=== PATIENT | female | born 1965 | race Caucasian/White ===

== ENCOUNTER → 2017-08-21 10:01 | Outpatient (CLI) | payer OTHER, SELFPAY ==
[2017-08-21 12:37] LABS: T4 Free Direct 1.05 ng/dL (0.76-1.46); Thyroid Stim Hormone (TSH) 0.81 uIU/mL (0.358-3.74)
== END ==
PROVIDERS: Family Provider Family Medicine; PCP Family Medicine; Visit Provider Family Medicine
DX: E03.9 Hypothyroidism, unspecified (principal)
CPT/HCPCS: 36415; 84439; 84443

== ENCOUNTER 2017-12-23 09:02 | Day surgery (SDC) | payer OTHER, SELFPAY ==
[2017-12-23 09:20] VITALS: BP 90/64; PULSE 66; RESP 12; TEMP 36.7; O2SAT 99; BMI 25.3
[2017-12-23 10:25] VITALS: BP 104/63; BP 90/64; PULSE 77; RESP 16; TEMP 36.8; O2SAT 98
[2017-12-23 10:30] VITALS: BP 100/64; BP 90/64; PULSE 74; RESP 16; O2SAT 100
[2017-12-23 10:35] VITALS: BP 105/64; BP 90/64; PULSE 63; RESP 18; O2SAT 100
[2017-12-23 10:40] VITALS: BP 111/66; BP 90/64; PULSE 67; RESP 18; TEMP 36.6; O2SAT 100
[2017-12-23 10:53] VITALS: BP 90/64
--- NOTE | 2017-12-23 13:00 | PCM.OPRPT ---
Report of Operation Date of Procedure: 12/23/17 Pre-Operative Diagnosis: Screening for colon cancer Post-Operative Diagnosis: Internal and external hemorrhoids Surgery/Procedure Performed:: Colonoscopy Type of Anesthesia:: MAC Anesthesiologist: Elías Gaviria Specimen's removed: None Estimated Blood Loss (mL): None Description of Procedure: Procedure: Colonoscopy After reviewing the risks benefits, the patient was deemed in satisfactory condition to undergo procedure. After obtaining informed consent, the scope was passed under direct visualization. Throughout the procedure, the patient's blood pressure pulse and position saturations were monitored continuously anesthesia. The colonoscope was introduced through the anus and advanced to the cecum, identified by the appendiceal orifice, IC valve and transillumination. The colonoscopy was performed without difficulty. The patient tolerated procedure well. Quality of bowel prep was good. Findings: The perianal and digital rectal exam failed external and grade 1 internal hemorrhoids. The colon (entire examined portion) appeared normal. Retroflexed view of the distal rectum and anal verge was showed grade 1 internal hemorrhoids Impression: 1. The entire colon is normal. 2. External and internal grade 1 hemorrhoids. Recommendations: Repeat colonoscopy in 10 years for screening purposes - Complications None
== END 2017-12-23 11:01 | disposition home or self-care (01) ==
LOC: EN 09:03 → AC 09:04
PROVIDERS: Family Provider Family Medicine; PCP Family Medicine; Visit Provider Surgery
PROC: 0DJD8ZZ Inspection of Lower Intestinal Tract, Via Natural or Artificial Opening Endoscopic (ICD-10-PCS; CPT 45378; principal; 2017-12-23 09:55)
DX: Z12.11 Encounter for screening for malignant neoplasm of colon (principal); K64.0 First degree hemorrhoids; K64.4 Residual hemorrhoidal skin tags; E03.9 Hypothyroidism, unspecified
CPT/HCPCS: 45378; J7120

== ENCOUNTER → 2018-07-08 14:45 | Outpatient (CLI) | payer OTHER, SELFPAY ==
[2018-07-08 15:52] LABS: Cholesterol 176 mg/dL (200); High Density Lipoprotein 58 mg/dL
== END ==
PROVIDERS: Family Provider Family Medicine; PCP Family Medicine; Visit Provider Family Medicine
DX: Z13.220 Encounter for screening for lipoid disorders (principal); E03.9 Hypothyroidism, unspecified
CPT/HCPCS: 36415; 82465; 83718; 84439; 84443

== ENCOUNTER 2018-12-17 17:15 | Emergency (ER) | payer OTHER, SELFPAY ==
[2018-12-17 17:16] VITALS: BP 132/68; PULSE 71; RESP 16; TEMP 36.7; O2SAT 98; BMI 24.0
--- NOTE | 2018-12-17 17:50 | ED.VISSUMM ---
- ER Visit Summary Date of Service: 12/17/18 Chief Complaint: Right small finger bruise without any obvious known trauma or injury. History of Present Illness: The patient is a 53 F as male history of hypothyroidism. Patient is right-hand dominant. Today she was on minor gardening. Since she developed a small bruise on her right small finger on the proximal phalanx on the palmar side. She has had these develop before on her right long finger. But denies any bruising in other areas. She denies any bloody noses or blood in her urine or stool. She has no bleeding disorder. She denies any significant pain. She has normal range of motion her right hand. She is on no blood thinners. Physical Examination: Well-appearing middle-aged female. Vital signs are stable afebrile. No acute distress. HEENT exam normal. Neck nontender no lymphadenopathy. Lungs clear to auscultation bilaterally. Heart regular rhythm no murmur. Abdomen soft nontender normal bowel sounds no peritoneal signs. Extremities moves all 4. Neurovascular intact. Palm of her right hand in the proximal phalanx there is a small bruise. Otherwise the other fingers are normal. She has full flexion-extension all digits. There is no bony deformity or tenderness. Distally all fingers have normal cap refill touch sensation. Test Results: None Emergency Department Course and Treatment: Patient most likely has a small hematoma from minor trauma that she did not even realize. There is no need for any x-rays or blood work at this time. Treatment Plan: Ice to the area. Motrin for pain. Follow-up with her doctor if she gets multiple areas of bruising. Disposition: Discharge Impression: Right small finger hematoma This note was generated with Editlite dictation software. It may contain incorrect words, spelling, and punctuation that were not noted in review of the chart prior to signing ED Disposition - Plan for ED Patient: Referrals: David Parker MD [Primary Care Provider] -
--- NOTE | 2018-12-17 17:52 | ED.DEP ---
ED Disposition - Plan for ED Patient: Disposition: Home or Assisted Living Instructions: Hematoma Referrals: David Parker MD [Primary Care Provider] - As Needed Additional Instructions: Follow-up with your doctor if you develop bruising in multiple areas. Most likely this came from minor trauma to a small blood vessel on your right small finger. Ice and elevate. Motrin for pain and swelling.
== END 2018-12-17 18:12 | disposition home or self-care (01) ==
LOC: ED 17:58
PROVIDERS: Emergency Provider Emergency Medicine; Family Provider Family Medicine; PCP Family Medicine
DX: S60.051A Contusion of right little finger without damage to nail, initial encounter (principal); X58.XXXA Exposure to other specified factors, initial encounter; Y93.H2 Activity, gardening and landscaping; Y92.9 Unspecified place or not applicable; E03.9 Hypothyroidism, unspecified; Z79.899 Other long term (current) drug therapy
CPT/HCPCS: 99282

== ENCOUNTER → 2018-12-20 | Outpatient (CLI) | payer OTHER, SELFPAY ==
[2018-12-17 17:16] VITALS: BMI 24.0
[2018-12-20 18:19] LABS: T4 Free Direct 1.33 ng/dL (0.76-1.46); Thyroid Stim Hormone (TSH) 0.04 uIU/mL (0.358-3.74)
[2018-12-21 09:36] LABS: Free T3 2.5 pg/mL (2.18-3.98)
== END | disposition home or self-care (01) ==
LOC: MTLAB 15:51
PROVIDERS: Family Provider Family Medicine; PCP Family Medicine; Referring Provider Family Medicine; Visit Provider Family Medicine
DX: E03.9 Hypothyroidism, unspecified (principal)
CPT/HCPCS: 36415; 84439; 84443; 84481

== ENCOUNTER → 2019-02-14 11:52 | Outpatient (CLI) | payer OTHER, SELFPAY ==
[2019-02-14 14:09] LABS: Free T3 2.4 pg/mL (2.18-3.98); Thyroid Stim Hormone (TSH) 0.05 uIU/mL (0.358-3.74)
== END ==
PROVIDERS: Family Provider Family Medicine; PCP Family Medicine; Referring Provider Family Medicine; Visit Provider Family Medicine
DX: E03.9 Hypothyroidism, unspecified (principal)
CPT/HCPCS: 36415; 84443; 84481

== ENCOUNTER → 2019-03-08 16:56 | Outpatient (CLI) | payer OTHER, SELFPAY ==
[2019-03-08 18:33] LABS: Ferritin 24 ng/mL (8-252)
[2019-03-10 12:23] LABS: Thyroid Peroxidase AB 91 IU/mL (0-34)
== END ==
PROVIDERS: Family Provider Family Medicine; PCP Family Medicine; Referring Provider Dermatology Pediatric Dermatology; Visit Provider Dermatology Pediatric Dermatology
DX: E03.9 Hypothyroidism, unspecified (principal); L82.1 Other seborrheic keratosis; L81.4 Other melanin hyperpigmentation; D18.01 Hemangioma of skin and subcutaneous tissue; D22.5 Melanocytic nevi of trunk; L57.8 Other skin changes due to chronic exposure to nonionizing radiation; L65.0 Telogen effluvium; D23.62 Other benign neoplasm of skin of left upper limb, including shoulder; Z71.89 Other specified counseling
CPT/HCPCS: 36415; 82728; 86376

== ENCOUNTER → 2019-04-05 16:34 | Outpatient (CLI) | payer OTHER, SELFPAY ==
[2019-04-05 18:26] LABS: T4 Total, Thyroxin 14.4 ug/dL (4.8-13.9); Thyroid Stim Hormone (TSH) 0.05 uIU/mL (0.358-3.74)
[2019-04-06 09:05] LABS: T4 Free Direct 1.53 ng/dL (0.76-1.46)
== END ==
PROVIDERS: Family Provider Family Medicine; PCP Family Medicine; Referring Provider Family Medicine; Visit Provider Family Medicine
DX: E03.9 Hypothyroidism, unspecified (principal)
CPT/HCPCS: 36415; 84436; 84439; 84443; 84480

== ENCOUNTER → 2019-06-28 16:33 | Outpatient (CLI) | payer OTHER, SELFPAY ==
[2019-06-28 18:18] LABS: T4 Free Direct 1.25 ng/dL (0.76-1.46); Thyroid Stim Hormone (TSH) 0.09 uIU/mL (0.358-3.74)
== END ==
PROVIDERS: PCP Family Medicine; Referring Provider Family Medicine; Visit Provider Family Medicine
DX: E03.9 Hypothyroidism, unspecified (principal)
CPT/HCPCS: 36415; 84439; 84443

== ENCOUNTER → 2019-08-06 08:48 | Outpatient (CLI) | payer OTHER, SELFPAY ==
[2019-08-06 10:02] LABS: ALB/GLOB Ratio 1.2 RATIO (0.9-2.4); AST(SGOT) 27 U/L (15-37); Alanine Aminotransfer ALT/SGPT 30 U/L (13-56); Alkaline Phosphatase 132 U/L (45-117); Anion Gap 4 (5-15); BUN 22 mg/dL (7-18); BUN/Creat Ratio 25.2 RATIO (10-20); Chloride 105 mmol/L (98-107); Cholesterol 181 mg/dL (200); Creatinine, Serum 0.87 mg/dL (0.55-1.02); EST Glomerular Filtration Rate 72 mL/min (>60); Est Glom Filt Rate - Afr Amer 87 mL/min (>60); Globulin 3.3 g/dL (2.2-4.2); Glucose 91 mg/dL (74-106); High Density Lipoprotein 79 mg/dL; Potassium 4.2 mmol/L (3.5-5.1); Protein, Total 7.3 g/dL (6.4-8.2); Sodium Level 140 mmol/L (136-145); Triglycerides 67 mg/dL; Very Low Density Lipoprotein 13 mg/dL (5-40)
[2019-08-06 10:12] LABS: Free T3 2.4 pg/mL (2.18-3.98); T4 Free Direct 1.29 ng/dL (0.76-1.46); Thyroid Stim Hormone (TSH) 0.68 uIU/mL (0.358-3.74)
== END ==
PROVIDERS: PCP Family Medicine
DX: Z13.220 Encounter for screening for lipoid disorders (principal); E78.01 Familial hypercholesterolemia; E03.9 Hypothyroidism, unspecified
CPT/HCPCS: 80053; 80061; 84439; 84443; 84481

== ENCOUNTER → 2020-02-29 16:02 | Outpatient (CLI) | payer OTHER, SELFPAY ==
[2020-02-29 18:38] LABS: ALB/GLOB Ratio 1.2 RATIO (0.9-2.4); AST(SGOT) 24 U/L (15-37); Alanine Aminotransfer ALT/SGPT 29 U/L (13-56); Albumin, Serum 3.8 g/dL (3.2-5.0); Alkaline Phosphatase 126 U/L (45-117); Anion Gap 2 (5-15); BUN 20 mg/dL (7-18); BUN/Creat Ratio 23.9 RATIO (10-20); Calcium,Total 9.1 mg/dL (8.5-10.1); Chloride 106 mmol/L (98-107); Creatinine, Serum 0.84 mg/dL (0.55-1.02); EST Glomerular Filtration Rate 75 mL/min (>60); Est Glom Filt Rate - Afr Amer 91 mL/min (>60); Free T3 2.4 pg/mL (2.18-3.98); Globulin 3.3 g/dL (2.2-4.2); Glucose 91 mg/dL (74-106); Magnesium 2.2 mg/dL (1.6-2.6); Protein, Total 7.1 g/dL (6.4-8.2); Sodium Level 141 mmol/L (136-145); T4 Free Direct 1.31 ng/dL (0.76-1.46); Thyroid Stim Hormone (TSH) 1.02 uIU/mL (0.358-3.74)
[2020-03-03 14:29] LABS: Zinc, Plasma or Serum 97 ug/dL (56-134)
== END ==
PROVIDERS: PCP Family Medicine; Referring Provider Family Medicine; Visit Provider Family Medicine
DX: E03.9 Hypothyroidism, unspecified (principal); R74.8 Abnormal levels of other serum enzymes
CPT/HCPCS: 36415; 80053; 83735; 84439; 84443; 84481; 84630

== ENCOUNTER → 2020-06-18 | Outpatient (CLI) | payer OTHER, SELFPAY ==
[2020-06-18 14:47] VITALS: BMI 24.9
[2020-06-22 12:30] LABS: HPV APTIMA, High Risk Negative (Negative)
== END | disposition home or self-care (01) ==
LOC: LABSPEC 17:12
PROVIDERS: PCP Family Medicine; Referring Provider Nurse Practitioner Women's Health; Visit Provider Nurse Practitioner Women's Health
DX: Z12.4 Encounter for screening for malignant neoplasm of cervix (principal)
CPT/HCPCS: 87624; 88175; G0145

== ENCOUNTER → 2020-11-06 08:49 | Outpatient (CLI) | payer OTHER, SELFPAY ==
[2020-06-18 14:47] VITALS: BMI 24.9
[2020-11-06 09:47] LABS: Absolute Lymphocyte Count 2.06 X10^3/uL (0.83-4.51); Absolute Neutrophil Count 2.8 X10^3/uL (2.0-7.7); Basophil# 0.02 X10^3/uL; Basophil% 0.4 % (0-1); Eosinophil# 0.13 X10^3/uL; Eosinophils% 2.4 % (0-5); Hematocrit 40.8 % (37-47); Hemoglobin 13.2 g/dL (12.0-15.0); Lymphocyte # 2.06 X10^3/ul (0.83-4.51); Lymphocyte % 37.8 % (19-41); Mean Corp Hgb Conc 32.4 g/dL (32-36); Mean Corpuscular Volume 95.8 fL (81-99); Mean Platelet Vol. 10.1 fl (6.2-12.0); Monocyte# 0.42 X10^3/uL; Monocyte% 7.7 % (0-10); NRBC Flagged by Analyzer 0 % (0-5); Neutrophil # 2.81 X10^3/uL (2.7-7.7); Neutrophil % 51.5 % (47-70); Platelet Count 301 K/mm3 (150-450); RBC Distribution Width CV 12.5 % (11.6-14.6); RBC Distribution Width SD 44.2 fl (35.1-43.9); Red Blood Count 4.26 M/mm3 (4.2-5.4); White Blood Count 5.5 K/mm3 (4.4-11.0)
[2020-11-06 10:09] LABS: PTHIN 35.6 pg/mL (18.4-80.1)
[2020-11-06 10:13] LABS: ALB/GLOB Ratio 1.2 RATIO (0.9-2.4); AST(SGOT) 31 U/L (15-37); Alanine Aminotransfer ALT/SGPT 32 U/L (13-56); Alkaline Phosphatase 129 U/L (45-117); Anion Gap 5 (5-15); BUN 24 mg/dL (7-18); BUN/Creat Ratio 28.1 RATIO (10-20); Calcium,Total 9.6 mg/dL (8.5-10.1); Chloride 103 mmol/L (98-107); Creatinine, Serum 0.86 mg/dL (0.55-1.02); EST Glomerular Filtration Rate 73 mL/min (>60); Est Glom Filt Rate - Afr Amer 89 mL/min (>60); Free T3 1.8 pg/mL (2.18-3.98); Globulin 3.4 g/dL (2.2-4.2); Glucose 84 mg/dL (74-106); Potassium 4.2 mmol/L (3.5-5.1); Protein, Total 7.4 g/dL (6.4-8.2); Sodium Level 140 mmol/L (136-145); T4 Free Direct 1.13 ng/dL (0.76-1.46); Thyroid Stim Hormone (TSH) 5.37 uIU/mL (0.358-3.74); Vitamin D,25 Hydroxy 78.8 ng/mL
== END ==
PROVIDERS: PCP Family Medicine; Referring Provider Family Medicine; Visit Provider Family Medicine
DX: E03.9 Hypothyroidism, unspecified (principal); R74.8 Abnormal levels of other serum enzymes
CPT/HCPCS: 36415; 80053; 82306; 83970; 84439; 84443; 84481; 85025

== ENCOUNTER → 2021-11-07 | Outpatient (CLI) | payer OTHER, SELFPAY ==
[2021-11-07 16:06] LABS: ALB/GLOB Ratio 1.2 RATIO (0.9-2.4); AST(SGOT) 32 U/L (15-37); Alanine Aminotransfer ALT/SGPT 33 U/L (13-56); Albumin, Serum 3.8 g/dL (3.2-5.0); Alkaline Phosphatase 111 U/L (45-117); Anion Gap 5 (5-15); BUN 19 mg/dL (7-18); BUN/Creat Ratio 21.5 RATIO (10-20); Calcium,Total 9.2 mg/dL (8.5-10.1); Chloride 102 mmol/L (98-107); Creatinine, Serum 0.88 mg/dL (0.55-1.02); EST Glomerular Filtration Rate 70 mL/min (>60); Est Glom Filt Rate - Afr Amer 85 mL/min (>60); Globulin 3.1 g/dL (2.2-4.2); Glucose 100 mg/dL (74-106); Potassium 4.2 mmol/L (3.5-5.1); Protein, Total 6.9 g/dL (6.4-8.2); Sodium Level 137 mmol/L (136-145); Thyroid Stim Hormone (TSH) 0.72 uIU/mL (0.358-3.74)
== END | disposition home or self-care (01) ==
LOC: MTLAB 11:10
PROVIDERS: PCP Family Medicine; Referring Provider Family Medicine; Visit Provider Family Medicine
DX: R74.8 Abnormal levels of other serum enzymes (principal)
CPT/HCPCS: 36415; 80053; 84439; 84443

== ENCOUNTER 2022-07-17 19:37 | Emergency (ER) | payer OTHER, SELFPAY ==
[2022-07-17 19:40] VITALS: BP 122/90; PULSE 100; RESP 18; TEMP 36; O2SAT 100; BMI 24.7
--- NOTE | 2022-07-17 20:49 | EKG12_ITS ---
Test Reason : DYSRHYTHMIA Blood Pressure : / mmHG Vent. Rate : 092 BPM Atrial Rate : 092 BPM P-R Int : 134 ms QRS Dur : 076 ms QT Int : 364 ms P-R-T Axes : 079 080 033 degrees QTc Int : 450 ms Normal sinus rhythm Normal ECG Confirmed by TONYA GARY, ANA ([id number]), business editor VIV RODRIGUEZ ([id number]) on 07/18/2022 10:00:25 AM Referred By: BB Confirmed By:ANA CASTANEDA MD
--- NOTE | 2022-07-17 20:51 | EDS_ITS ---
HPI HPI - GI History of Present Illness Chief Complaint: Nausea/Vomiting Informant: patient Narrative Narrative: Patient felt nauseated and had a mild bellyache this morning, she ate lunch and did okay. She had no fevers or diarrhea, she had a normal bowel movement today without blood or melena. Around 3 hours ago, she had developed intense pain in her left upper quadrant followed by retching vomiting stomach contents without blood or coffee grounds. She states the pain was extreme and did not radiate. She said it came in waves and she vomited maybe 6 times. She had a prior cholecystectomy and states that this seemed similar to that discomfort but it was in the left upper quadrant only. Now she feels better, and has a mild diffuse achy discomfort in her abdomen and her nausea is not as bad. She has never had this happen before. She denies any discomfort going up into her chest, into her back, any pleuritic nature, or any dyspnea. She states a couple times when she was retching very hard, she was near syncopal, but in between vomiting, her lightheadedness would resolve. She did not lose consciousness. [facility] Medical History Family history of breast cancer Hypothyroidism Home Medications diphenhydramine HCl 25 mg tablet 25 mg PO DAILY 11/17/17 [History Last Taken Unknown] multivitamin 1 tab PO DAILY 11/17/17 [History Last Taken Unknown] cholecalciferol (vitamin D3) 50 mcg (2,000 unit) capsule 2,000 unit PO DAILY 12/22/17 [History Last Taken Unknown] ascorbate calcium (vitamin C) 500 mg tablet 500 mg PO DAILY 06/18/20 [History Last Taken Unknown] aspirin 81 mg tablet,delayed release 81 mg PO BID 06/18/20 [History Last Taken Unknown] biotin 1 mg capsule 1 mg PO DAILY 06/18/20 [History Last Taken Unknown] estradiol 0.01% (0.1 mg/gram) vaginal cream See Rx Instructions vaginal .COMPLEX #42.5 grams 06/18/20 [Rx Last Taken Unknown] iron 18 mg tablet 18 mg PO DAILY 06/18/20 [History Last Taken Unknown] levothyroxine 125 mcg tablet 112 mcg PO DAILY 06/18/20 [History Last Taken Unknown] magnesium 30 mg tablet 30 mg PO DAILY 06/18/20 [History Last Taken Unknown] ondansetron 4 mg disintegrating tablet 8 mg PO Q8H PRN PRN Nausea #20 tabs 07/17/22 [Rx Last Taken Unknown] pantoprazole 40 mg tablet,delayed release 40 mg PO DAILY #7 tabs 07/17/22 [Rx Last Taken Unknown] Allergy/AdvReac Type Severity Reaction Status Date / Time Penicillins AdvReac Hives Verified 07/17/22 19:40 Family History (Updated 06/18/20 @ 14:55 by Roselyn De Jesus) Grandmother Breast cancer Rheumatoid arthritis Mother Breast cancer Father Afib Surgical History History of cholecystectomy S/P uterine ablation Social History household members: none number of children: 2 current occupational status: employed current occupation: [employer] history of recent travel: No sexually active: No Smoking Status: Never smoker alcohol intake: current alcohol intake frequency: a few times a month substance use type: does not use diet: Weight Watchers and other what type of physical activity do you participate in: aerobics and weight training seatbelt use: always do you feel safe at home: Yes additional social history: ROS ROS ED Constitutional Constitutional ED: Denies chills or fever(s) Eyes Eyes: Denies change in vision or diplopia ENT ENT ED: Denies rhinorrhea or sore throat Cardiovascular Cardiovascular: Denies chest pain or palpitations Respiratory/Chest Respiratory/Chest: Denies cough or dyspnea Gastrointestinal Gastrointestinal: Reports as per HPI, abdominal pain, nausea and vomiting; Denies diarrhea Genitourinary Genitourinary ED: Denies dysuria or hematuria Musculoskeletal Musculoskeletal: Denies back pain or neck pain Integumentary Denies abscess or rash Neurologic Neurologic: Denies headache(s), paresthesias or weakness Psychiatric Psychiatric: Denies anxiety or suicidal thoughts EXAM Physical Exam Const Vital Signs: 07/17/22 19:40 07/17/22 20:59 Temperature 96.8 F L 99 F Temperature Source Temporal Oral Pulse Rate 100 Respiratory Rate 18 Blood Pressure 122/90 H Blood Pressure Mean 100 Pulse Ox 100 Oxygen Delivery Method Room Air Positive well nourished and well developed General Appearance ED: well developed and NAD HEENT Reports moist mucous membranes normocephalic and atraumatic Eyes PERRL and EOMs intact bilaterally Neck full ROM and supple Resp normal respiratory effort and clear to auscultation bilaterally Cardio regular rate, regular rhythm and no murmurs GI non-tender and non-distended GI Narrative: Very benign abdomen even with deep palpation, unable to reproduce any pain/tenderness diffusely or anywhere. Auscultation: normoactive bowel sounds Palpation: soft Back/Spine no CVA tenderness General Back: other FROM Extremity normal to inspection General Extremety ED: Negative for edema, pulses abnormal or tenderness General Extremity: Negative for edema or pulses abnormal Neuro oriented x3, CN's II-XII intact bilaterally and no sensory deficits noted Sensorium / Orientation: awake and alert Motor Exam: strength 5/5 throughout Skin no rashes or lesions noted and no wounds MDM MDM MDM Narrative Medical decision making narrative: Patient had severe left upper quadrant pain but now has a very benign abdomen, I am not able to reproduce any of her pain. Therefore in order to evaluate for pathology such as a left lower lobe infiltrate, gastric outlet obstruction, or other obstructive-type pathology, I obtained an acute abdominal series. 4 views on my interpretation show nonspecific bowel gas pattern and a normal chest x- ray. Radiology in agreement I reviewed their interpretation. Her labs look normal except for mild prerenal azotemia and she has positive nitrite on her urinalysis with no urine symptoms. I am sending her urine for culture but I do not think that needs to be addressed right now otherwise. I also did troponin and EKG, those are normal. I suspect that her near syncopal episodes were simply vasovagal and she concurs that they occurred while she was retching and performing a Valsalva maneuver involuntarily. Here after IV fluids, Zofran, she is feeling much better and tolerating oral fluids and ambulatory throughout the ED, to and from the bathroom. I suspect this may be just gastritis, may be infectious may be mechanical/inflammatory, will place her on pantoprazole for a week and give her a prescription for Zofran to use as needed, and recommend a bland diet for the next several days until what ever this is declares itself. She is comfortable with that plan. Lab Data Attestation: I reviewed the patient's lab results. Labs: Laboratory Results - last 24 hr 07/17/22 07/17/22 07/17/22 20:00 20:00 21:25 WBC 8.9 RBC 4.16 L Hgb 12.9 Hct 39.3 MCV 94.5 MCH 31.0 MCHC 32.8 RDW Std Deviation 43.7 RDW Coeff of [place] 12.6 Plt Count 241 MPV 10.8 Immature Gran % (Auto) 0.200 Neut % (Auto) 90.9 H Lymph % (Auto) 4.5 L [place] % (Auto) 4.2 Eos % (Auto) 0.1 Baso % (Auto) 0.1 Absolute Neuts (auto) 8.1 H Absolute Lymphs (auto) 0.40 L Nucleated RBC % 0 Differential Comment SCANNED Sodium 139 Potassium 3.7 Chloride 105 Carbon Dioxide 27.0 Anion Gap 7 BUN 22 H Creatinine 0.76 Estim Creat Clear Calc 65.37 Est GFR (MDRD) Af Amer 101 Est GFR (MDRD) Non-Af 83 BUN/Creatinine Ratio 28.9 H Glucose 112 H Calcium 9.1 Troponin I High Sens 4 Urine Color Yellow Urine Clarity Clear Urine pH 8.0 Ur Specific Thor 1.010 Urine Protein Negative Urine Glucose (UA) Normal Urine Ketones 5 H Urine Occult Blood 10 H Urine Nitrite Positive H Urine Bilirubin Negative Urine Urobilinogen 1 H Ur Leukocyte Esterase 25 H Urine RBC 0 SEEN Urine WBC 0-5 SEEN Ur Squamous Epith Cells 0 SEEN Urine Bacteria 2+ Urine Mucus 0 SEEN Radiography Diagnostic Testing: Clinical Impression(s) from Imaging Studies Acute Abdomen Series 07/17/22 21:10 IMPRESSION: No acute cardiopulmonary disease. Nonspecific bowel gas pattern suggesting possible colitis/enteritis. Electronically Signed: José Manuel Monet MD at 21:39 EST , Rhythm Strip Rhythm Strip: Sinus Rhythm Rate: 90 Ectopy: None EKG Initial EKG: Attestation: I personally reviewed and interpreted this EKG as follows: Interpretation: Sinus Rhythm and No Acute Injury Pattern Comments: Normal EKG Discharge Plan Triage Chief Complaint: Nausea/Vomiting Other Complaint: Abd Pain Chest Other Dizziness Syncope ED Provider: Ramana Juárez Dx/Rx/DC Orders Clinical Impression: Acute gastritis without hemorrhage, Vasovagal near syncope Instructions: ED Diet, [place] (Adult), ED Diet Vomiting Diarrhea, ED Gastritis (Adult) Prescriptions: New ondansetron [ondansetron] 4 mg tablet,disintegrating 8 mg PO Q8H PRN PRN (Reason: Nausea) Qty: 20 0RF pantoprazole 40 mg tablet,delayed release (DR/EC) 40 mg PO DAILY Qty: 7 0RF No Action aspirin 81 mg tablet,delayed release (DR/EC) 81 mg PO BID magnesium 30 mg tablet 30 mg PO DAILY biotin 1 mg capsule 1 mg PO DAILY ascorbate calcium (vitamin C) 500 mg tablet 500 mg PO DAILY iron 18 mg tablet 18 mg tablet 18 mg PO DAILY estradiol 0.01 % (0.1 mg/gram) cream See Rx Instructions VAGINAL .COMPLEX Qty: 42.5 2RF Rx Instructions: small amount as directed vaginal twice a week; multivitamin 1 EACH tablet 1 tab PO DAILY diphenhydramine HCl 25 MG tablet 25 mg PO DAILY cholecalciferol (vitamin D3) 2,000 UNIT capsule 2,000 unit PO DAILY levothyroxine 125 mcg tablet 112 mcg PO DAILY Primary Care Provider: David Parker Referrals: David Parker MD [Primary Care Provider] - 3-5 Days if not improving Disposition Disposition: Home, Self Care
[2022-07-17] MEDS: 0.9% Normal Saline 1,000 ML 1000 ML IV (20:58)
[2022-07-17] MEDS: Ondansetron 4 MG/2 ML Vial IV (20:58)
[2022-07-17] MEDS: Dicyclomine 10 MG Capsule 20 MG PO (20:58)
[2022-07-17 20:59] VITALS: TEMP 37.2
--- NOTE | 2022-07-17 21:10 | RAD_ITS ---
INDICATION: Pain LUQ, n/v EXAMINATION/TECHNIQUE: X-RAY - XR Abdomen Series W/ Chest 1 View COMPARISON: None FINDINGS: --Chest: LINES/DEVICES: None. LUNGS: No consolidation, edema or effusion. No pneumothorax. MEDIASTINUM AND CARDIOVASCULAR STRUCTURES: Cardiac silhouette not enlarged. Central airways and mediastinal contour are unremarkable. BONES AND SOFT TISSUES: No acute findings. --Abdomen: BOWEL GAS PATTERN: Non-obstructive. Extensive colonic fecal retention with gas present in both large and small bowel, scattered colonic fluid levels. FREE AIR: None visualized. ORGANOMEGALY: Not seen. CALCIFICATIONS: No abnormal calcifications observed. BONES AND SOFT TISSUES: No acute findings. RAD/Acute Abdomen Inc Chest IMPRESSION: No acute cardiopulmonary disease. Nonspecific bowel gas pattern suggesting possible colitis/enteritis. Electronically Signed: José Manuel Monet MD at 21:39 EST ,
[2022-07-17 21:27] LABS: Absolute Neutrophil Count 8.1 X10^3/uL (2.0-7.7); Basophil# 0.01 X10^3/uL; Basophil% 0.1 % (0-1); Eosinophil# 0.01 X10^3/uL; Eosinophils% 0.1 % (0-5); Hematocrit 39.3 % (37-47); Hemoglobin 12.9 g/dL (12.0-15.0); Lymphocyte % 4.5 % (19-41); Mean Corp Hgb Conc 32.8 g/dL (32-36); Mean Corpuscular Volume 94.5 fL (81-99); Mean Platelet Vol. 10.8 fl (6.2-12.0); Monocyte# 0.37 X10^3/uL; Monocyte% 4.2 % (0-10); NRBC Flagged by Analyzer 0 % (0-5); Neutrophil # 8.05 X10^3/uL (2.7-7.7); Neutrophil % 90.9 % (47-70); POSITIVE DIFFERENTIAL YES; Platelet Count 241 K/mm3 (150-450); RBC Distribution Width CV 12.6 % (11.6-14.6); RBC Distribution Width SD 43.7 fl (35.1-43.9); Red Blood Count 4.16 M/mm3 (4.2-5.4); White Blood Count 8.9 K/mm3 (4.4-11.0)
[2022-07-17 21:33] LABS: Mucous, Urine 0 SEEN /hpf (<or=2+); Red Blood Cells-Urine 0 SEEN /hpf (0-5); Squamous Epithelial Cells - UA 0 SEEN /hpf (5-10)
[2022-07-17 21:37] LABS: Color, Urine Yellow (Yellow); Glucose, Dipstick Normal (Normal); Ketone-Dipstick 5 mg/dl (Negative); Leukocyte Esterase-Dipstick 25 /ul (Negative); Nitrite-Dipstick Positive (Negative); Occult Blood-Urine 10 /ul (Negative); Protein-Dipstick Negative (Negative); Urine Bilirubin Dipstick Negative (Negative); Urine Clarity Clear (Clear); Urine Urobilinogen 1 mg/dl (Normal)
[2022-07-17 21:46] LABS: Anion Gap 7 (5-15); BUN 22 mg/dL (7-18); BUN/Creat Ratio 28.9 RATIO (10-20); Calcium,Total 9.1 mg/dL (8.5-10.1); Chloride 105 mmol/L (98-107); Creatinine, Serum 0.76 mg/dL (0.55-1.02); EST Glomerular Filtration Rate 83 mL/min (>60); Est Glom Filt Rate - Afr Amer 101 mL/min (>60); Estimated Creatinine Clearance 65.37 ml/min; Glucose 112 mg/dL (74-106); Potassium 3.7 mmol/L (3.5-5.1); Sodium Level 139 mmol/L (136-145); Troponin-I HS 4 pg/mL (3.0-54.0)
[2022-07-17 21:47] LABS: Differential Indicated SCAN CRITERIA MET
[2022-07-17 22:01] LABS: Differential Comment SCANNED
[2022-07-17 22:01] LABS: Bacteria 2+ /hpf (None Seen); White Blood Cells 0-5 SEEN /hpf (0-5)
[2022-07-17 22:20] VITALS: BP 114/61; PULSE 71; RESP 16; O2SAT 97
== END 2022-07-17 22:28 | disposition home or self-care (01) ==
PROVIDERS: Emergency Provider Emergency Medicine; PCP Family Medicine; Visit Provider Emergency Medicine
DX: K29.00 Acute gastritis without bleeding (principal); R55 Syncope and collapse; E03.9 Hypothyroidism, unspecified; Z90.49 Acquired absence of other specified parts of digestive tract; Z79.82 Long term (current) use of aspirin; Z79.899 Other long term (current) drug therapy
CPT/HCPCS: 74022; 80048; 81001; 84484; 85025; 87077; 87086; 87088; 87186; 93005; 96361; 96374; 99283; J7030; A4216; J2405

== ENCOUNTER → 2022-12-29 | Outpatient (CLI) | payer OTHER, SELFPAY ==
--- NOTE | 2022-12-29 15:50 | US_ITS ---
INDICATION: postmenopausal bleeding EXAMINATION: Ultrasound US Pelvis Non OB Complete With Transvaginal Imaging TECHNIQUE: Transabdominal and endovaginal sonographic images of the pelvis. Grayscale, spectral waveform, and color flow Doppler evaluation of the adnexa. COMPARISON: None. FINDINGS: UTERUS: Retroverted. 3.8 x 6.5 x 2.8 cm. No evidence of a uterine mass or fibroid. Endometrium is unremarkable. Endometrial stripe thickness of 3 mm. Dilated periuterine vessels. RIGHT OVARY: Unremarkable. Normal vascular flow demonstrated with color and pulsed-wave Doppler. LEFT OVARY: Not visualized due to overlying bowel gas. FREE FLUID: No significant free fluid. US/Pelvic w/ Transvaginal IMPRESSION: 1. Unremarkable appearance of the endometrium. 2. Dilated periuterine vessels which may represent pelvic congestion syndrome if correlated clinically. 3. Normal appearance of the right ovary and nonvisualization of the left ovary. Electronically Signed: Meño Pimentel DO at 2:33 EDT ,
== END | disposition home or self-care (01) ==
PROVIDERS: PCP Family Medicine; Referring Provider Nurse Practitioner Women's Health; Visit Provider Nurse Practitioner Women's Health
DX: N95.0 Postmenopausal bleeding (principal)
CPT/HCPCS: 76830; 76856

== ENCOUNTER → 2023-05-20 | Outpatient (CLI) | payer OTHER, SELFPAY ==
[2023-05-20 11:19] LABS: ALB/GLOB Ratio 1.1 RATIO (0.9-2.4); AST(SGOT) 29 U/L (15-37); Alanine Aminotransfer ALT/SGPT 32 U/L (13-56); Albumin, Serum 3.9 g/dL (3.2-5.0); Alkaline Phosphatase 123 U/L (45-117); Anion Gap 3 (5-15); BUN 21 mg/dL (7-18); BUN/Creat Ratio 22.4 RATIO (10-20); Chloride 107 mmol/L (98-107); Cholesterol 195 mg/dL (200); Creatinine, Serum 0.94 mg/dL (0.55-1.02); EST Glomerular Filtration Rate 66 mL/min (>60); Est Glom Filt Rate - Afr Amer 79 mL/min (>60); Globulin 3.4 g/dL (2.2-4.2); Glucose 85 mg/dL (74-106); High Density Lipoprotein 66 mg/dL; Potassium 4.1 mmol/L (3.5-5.1); Protein, Total 7.3 g/dL (6.4-8.2); Sodium Level 141 mmol/L (136-145); T4 Free Direct 1.32 ng/dL (0.76-1.46); Thyroid Stim Hormone (TSH) 3.71 uIU/mL (0.358-3.74); Triglycerides 81 mg/dL; Very Low Density Lipoprotein 16 mg/dL (5-40)
== END | disposition home or self-care (01) ==
LOC: MTLAB 07:00
PROVIDERS: PCP Family Medicine; Referring Provider Family Medicine; Visit Provider Family Medicine
DX: Z13.220 Encounter for screening for lipoid disorders (principal); E03.9 Hypothyroidism, unspecified; R74.8 Abnormal levels of other serum enzymes
CPT/HCPCS: 36415; 80053; 80061; 84439; 84443

== ENCOUNTER 2024-05-10 15:00 | Outpatient (RCR) | payer OTHER, SELFPAY ==
--- NOTE | 2024-04-14 07:07 | HP.OTEVAL ---
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 Date of Evaluation: 04/13/24 Occupational Therapist: Mally Claire, LAURYN/Colleen, CHT Subjective Subjective: This 59 year old female was seen for OT ottoal with dx of left wrist radial styloid tenosynovitis ( DeQuervain's). pt states she noticed a few months ago but was trying to make adj. herself. Pain continued to get worse and she started to wear a wrist brace. Pain no real improvement so she went to see her Dr. 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 pt enjoys working out here at [employer] and caring for her granddtr. 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 pt will demo a increase in left lateral and tripod pinch to 10# or greater by d.c to return pt to a PLOF Goal:: pt will demo a increase in left wrist ROM by 15* or greater to return pt to her PLOF. Goal:: pt will report no pain greater than 2/10 with use of left hand with ADLs and IADLs by d/c Goal:: Pt will demo understanding of work/lifting and carry ergonomics to decrease stress on tendons to increase pts independent with ADLs, IADLS and work tasks by d/c. Goal:: Pt will demo understanding of using supportive bracing 80% of workday/ADLS to decrease stress on tendon origin to allow healing and decrease pain by end of 2nd session. Rehabilitation General Assessment: pt demo with positive symptoms on left wrist Tenosynovitis along with noted left thumb CMC OA. Pts pain is limiting her ROM and strength to perform her ADLS and IADLs at a IND. level. Pt would benefit from skilled OT services 2x week for 4-6 weeks to return pt to her PLOF. Today therapist ed. pt on wrist ergo. and possible use of a custom orthosis, along with POC. Pt demo understanding and agrees to POC. Rehabilitation Potential: Good Anticipated Interventions Anticipated Interventions: A/AAROM/PROM, Strengthening, Triggerpoint Release, Modalities, Orthoses, Joint Protection/Energy Conservation, Ergonomic Education, Education re assistive Equipment and Education re Diagnosis Visit Plan Frequency: 2x /Week Duration: 6 Weeks TEXT: Thank you for the opportunity to evaluate your patient. For Medicare and Medicare HMO plans, please review the plan of care and approve it. It will need to be FAXED BACK to us at [phone] for Medicare purposes. Please let me know if there are questions or concerns regarding this plan of care. Physician Signature: Date:
--- NOTE | 2024-10-13 08:28 | HP.OT.NRP ---
Patient Information Patient Information: AJ MANE was seen in my office for initial evaluation on 04/13/24. The following Plan of Care was established for this patient: POC Established Initial Frequency: 2x /Week Initial Duration: 6 Weeks Anticipated Interventions Anticipated Interventions: A/AAROM/PROM, Strengthening, Triggerpoint Release, Modalities, Orthoses, Joint Protection/Energy Conservation, Ergonomic Education, Education re assistive Equipment and Education re Diagnosis Last Seen Last Seen: This patient was last seen in our office 05/10/24. Pertinent comments regarding their Occupational therapy will appear below: pt last seen following a cortisone injection- was feeling better- no further apts scheduled at this time and due to time lapse in services pt d.c. At this point I will be discontinuing this patient from occupational therapy. I would be happy to see this patient again in the future if found appropriate by the physician. Thank you! Mally Claire, OTR/L, CHT
== END 2024-05-10 19:00 | disposition home or self-care (01) ==
LOC: OT 15:00
PROVIDERS: PCP Family Medicine; Referring Provider Physician Assistant; Visit Provider Physician Assistant
DX: M18.12 Unilateral primary osteoarthritis of first carpometacarpal joint, left hand (principal); M65.4 Radial styloid tenosynovitis [de Quervain]
CPT/HCPCS: 97035; 97140; 97166; 97530

== ENCOUNTER 2024-06-25 21:51 | Emergency (ER) | payer OTHER, SELFPAY ==
[2024-06-25 21:51] VITALS: BP 143/98; PULSE 92; RESP 16; TEMP 36.6; O2SAT 100; BMI 25.0
--- NOTE | 2024-06-25 22:19 | EKG12_ITS ---
Test Reason : CP/CHEST PRESSURE Blood Pressure : */* mmHG Vent. Rate : 74 BPM Atrial Rate : 74 BPM P-R Int : 136 ms QRS Dur : 78 ms QT Int : 412 ms P-R-T Axes : 70 71 47 degrees QTcB Int : 457 ms Normal sinus rhythm Normal ECG Confirmed by KEILA GARY, SHUN ([id number]), society editor BORIS SUAREZ ([id number]) on 06/27/2024 11:02:06 AM Referred By: LAUREN Confirmed By: SHUN PEDRAZA MD
--- NOTE | 2024-06-25 22:30 | RAD_ITS ---
INDICATION: chest pain EXAMINATION/TECHNIQUE: X-RAY - XR Chest 2 Views COMPARISON: Prior study dated: 07/17/2022 FINDINGS: LINES/DEVICES: None. LUNGS: No consolidation. A few calcified granulomata on the right. No pneumothorax. MEDIASTINUM: Unremarkable. CARDIAC [place]ETTE: Not enlarged. BONES AND SOFT TISSUES: No acute abnormalities. RAD/Chest PA and Lateral IMPRESSION: No evidence of active intrathoracic disease. Electronically Signed: Rosa Rocha MD at 0:39 EST ,
[2024-06-25 22:41] LABS: Absolute Lymphocyte Count 1.96 X10^3/uL (0.83-4.51); Absolute Neutrophil Count 7.2 X10^3/uL (2.0-7.7); Basophil# 0.03 X10^3/uL; Basophil% 0.3 % (0-1); Eosinophil# 0.08 X10^3/uL; Eosinophils% 0.8 % (0-5); Hemoglobin 13.6 g/dL (12.0-15.0); Lymphocyte # 1.96 X10^3/ul (0.83-4.51); Lymphocyte % 20.2 % (19-41); Mean Corp Hgb Conc 33.2 g/dL (32-36); Mean Corpuscular Hgb 31.5 pg (27.0-32.0); Mean Corpuscular Volume 94.9 fL (81-99); Mean Platelet Vol. 10.4 fl (6.2-12.0); Monocyte# 0.35 X10^3/uL; Monocyte% 3.6 % (0-10); NRBC Flagged by Analyzer 0 % (0-5); Neutrophil # 7.24 X10^3/uL (2.7-7.7); Neutrophil % 74.8 % (47-70); Platelet Count 303 K/mm3 (150-450); RBC Distribution Width CV 12.9 % (11.6-14.6); RBC Distribution Width SD 44.5 fl (35.1-43.9); Red Blood Count 4.32 M/mm3 (4.2-5.4); White Blood Count 9.7 K/mm3 (4.4-11.0)
[2024-06-25 22:49] VITALS: BP 124/84; PULSE 76; RESP 17; O2SAT 100
[2024-06-25 22:55] LABS: Mucous, Urine 0 SEEN /hpf (<or=2+); Red Blood Cells-Urine 0 SEEN /hpf (0-5); Squamous Epithelial Cells - UA 0 SEEN /hpf (5-10); White Blood Cells 0 SEEN /hpf (0-5)
[2024-06-25 22:59] LABS: Color, Urine Yellow (Yellow); Glucose, Dipstick Normal (Normal); Ketone-Dipstick Negative (Negative); Leukocyte Esterase-Dipstick 100 /ul (Negative); Nitrite-Dipstick Negative (Negative); Occult Blood-Urine 25 /ul (Negative); Protein-Dipstick 30 mg/dl (Negative); Urine Bilirubin Dipstick Negative (Negative); Urine Clarity Clear (Clear); Urine Urobilinogen Normal (Normal)
[2024-06-25 23:00] VITALS: BP 123/75; PULSE 80; RESP 18; TEMP 36.8; O2SAT 100
[2024-06-25 23:04] LABS: AST(SGOT) 33 U/L (15-37); Alanine Aminotransfer ALT/SGPT 32 U/L (13-56); Albumin, Serum 3.8 g/dL (3.2-5.0); Alkaline Phosphatase 120 U/L (45-117); Anion Gap 7 (5-15); BUN 26 mg/dL (7-18); BUN/Creat Ratio 29.7 RATIO (10-20); Bilirubin, Direct 0.17 mg/dL (0.00-0.30); Calcium,Total 9.2 mg/dL (8.5-10.1); Chloride 104 mmol/L (98-107); Creatinine, Serum 0.88 mg/dL (0.55-1.02); EST Glomerular Filtration Rate 71 mL/min (>60); Est Glom Filt Rate - Afr Amer 85 mL/min (>60); Estimated Creatinine Clearance 58.69 ml/min; Globulin 3.3 g/dL (2.2-4.2); Glucose 108 mg/dL (74-106); Lipase 64 U/L (13-75); Magnesium 2.2 mg/dL (1.6-2.6); Potassium 3.5 mmol/L (3.5-5.1); Protein, Total 7.1 g/dL (6.4-8.2); Sodium Level 140 mmol/L (136-145); Troponin-I HS 7 pg/mL (3.0-54.0)
[2024-06-25 23:05] LABS: Bacteria RARE /hpf (None Seen)
[2024-06-26] VITALS: BP 122/94; PULSE 85; RESP 16; TEMP 36.9; O2SAT 100
[2024-06-26 00:51] LABS: Troponin-I HS 7 pg/mL (3.0-54.0)
[2024-06-26 01:00] VITALS: BP 122/79; PULSE 80; RESP 16; O2SAT 100
--- NOTE | 2024-06-26 01:01 | EDS_ITS ---
HPI History of Present Illness Chief Complaint: Chest Pain Informant: patient Narrative Narrative: Patient is a 59-year-old female with past medical history of hypothyroidism. She states that today she just began feeling off. She states she had an epigastric/lower chest pain with nausea. She states that she felt generalized weakness and fatigue as well. She denies any diaphoresis history of cardiovascular disease or recent travel surgery or history of DVT/PE. She states she was talking to family and friends and there was concern that her vague symptoms could be cardiac in nature and therefore she presents for evaluation. Patient does state that a few years ago she had a UTI that had similar symptoms and there was also concern for this but at this time she denies any dysuria urgency or frequency [facility] Medical History Family history of breast cancer Hypothyroidism Home Medications ?Medication ?Instructions ?Recorded ?Last Taken ?Type multivitamin 1 tab PO DAILY 11/17/17 Unknown History cholecalciferol (vitamin D3) 50 2,000 unit PO DAILY 12/22/17 Unknown History mcg (2,000 unit) capsule ascorbate calcium (vitamin C) 500 500 mg PO DAILY 06/18/20 Unknown History mg tablet aspirin 81 mg tablet,delayed 81 mg PO BID 06/18/20 Unknown History release biotin 1 mg capsule 1 mg PO DAILY 06/18/20 Unknown History estradiol 0.01% (0.1 mg/gram) See Rx Instructions vaginal 06/18/20 Unknown Rx vaginal cream .COMPLEX #42.5 grams levothyroxine 125 mcg tablet 125 mcg PO DAILY 06/18/20 Unknown History magnesium 30 mg tablet 30 mg PO DAILY 06/18/20 Unknown History Allergy/AdvReac Type Severity Reaction Status Date / Time Penicillins AdvReac Hives Verified 09/24/23 13:06 Family History Grandmother Breast cancer Rheumatoid arthritis Mother Breast cancer Father Afib Surgical History History of cholecystectomy S/P uterine ablation Social History household members: none number of children: 2 current occupational status: employed current occupation: [employer] Verify history of recent travel: No sexually active: No Smoking Status: Never smoker alcohol intake: current alcohol intake frequency: a few times a month substance use type: does not use diet: Weight Watchers and other what type of physical activity do you participate in: aerobics and weight training seatbelt use: always do you feel safe at home: Yes additional social history: ROS ROS ED Constitutional Constitutional ED: Denies chills or fever(s) Eyes Eyes: Denies blurry vision or change in vision ENT ENT ED: Denies sore throat Cardiovascular Cardiovascular: Reports chest pain Respiratory/Chest Respiratory/Chest: Denies cough or dyspnea Gastrointestinal Gastrointestinal: Reports abdominal pain and nausea; Denies diarrhea or vomiting Genitourinary Genitourinary ED: Denies dysuria, hematuria or urinary frequency Musculoskeletal Musculoskeletal: Denies myalgias Integumentary Denies rash Neurologic Neurologic: Reports weakness; Denies headache(s) Hematologic/Lymphatic Hematologic/Lymphatic: Denies easy bleeding or easy bruising EXAM Physical Exam Const Vital Signs: 06/25/24 21:51 06/25/24 21:57 06/25/24 22:49 Temperature 97.9 F Temperature Source Temporal Pulse Rate 92 76 Respiratory Rate 16 17 Respiratory Effort Normal Blood Pressure 143/98 H 124/84 H Blood Pressure Mean 113 97 Pulse Ox 100 100 Oxygen Delivery Method Room Air Room Air 06/25/24 23:00 06/26/24 00:00 06/26/24 01:00 Temperature 98.3 F 98.4 F Temperature Source Temporal Temporal Pulse Rate 80 85 80 Respiratory Rate 18 16 16 Respiratory Effort Blood Pressure 123/75 H 122/94 H 122/79 H Blood Pressure Mean 91 103 93 Pulse Ox 100 100 100 Oxygen Delivery Method Room Air Room Air Room Air 06/26/24 01:14 Temperature 98.1 F Temperature Source Pulse Rate 89 Respiratory Rate 17 Respiratory Effort Blood Pressure 109/88 H Blood Pressure Mean 95 Pulse Ox 100 Oxygen Delivery Method Positive well nourished and well developed General Appearance ED: well developed; Negative for pallor HEENT HEENT Narrative: No tongue or lip swelling no oral lesions no airway edema or compromise No secondary findings in the posterior pharynx to suggest infection Eyes PERRL and EOMs intact bilaterally General Eye ED: Negative for scleral icterus Neck supple and no JVD Neck Narrative: No nuchal rigidity or meningeal signs Chest Wall palpation of chest normal Chest Narrative: No bony deformity or crepitance or subcutaneous emphysema noted Resp normal respiratory effort and clear to auscultation bilaterally Cardio regular rate and regular rhythm Rate: other Other Details: Heart is regular rate and rhythm without murmurs rubs or gallop Radial and carotid pulses are equal and symmetric No carotid bruit GI non-distended and no masses GI Narrative: Abdomen is soft and nondistended with normal active bowel sounds. There is mild pain on palpation in the midepigastric region without voluntary guarding or rigidity or pulsatile mass Auscultation: normoactive bowel sounds Palpation: soft Extremity normal to inspection Extremity Narrative: No asymmetric edema no pitting edema negative Homans' sign bilaterally Neuro oriented x3, CN's II-XII intact bilaterally and no sensory deficits noted Sensorium / Orientation: alert Motor Exam: strength 5/5 throughout Psych mental status grossly normal Skin no rashes or lesions noted General Skin Exam: Negative for jaundice or pallor MDM MDM MDM Narrative Medical decision making narrative: Patient arrived to the ER hypertensive but otherwise with stable vitals. Patient had vague symptoms but with pain in the midepigastric region/lower chest there is concern for acute coronary syndrome versus pancreatitis versus biliary colic versus acute cholecystitis versus UTI versus pneumonia or pneumothorax. Secondary to this a basic workup was obtained. Initial and delta troponin were 7 and EKG was sinus rhythm going against acute coronary syndrome and there is no cardiac dysrhythmia while patient was on the monitor. Chest x-ray revealed no acute lung pathology. Blood work showed no signs of acute blood loss anemia or elevation to her lipase to suggest pancreatitis or acute kidney injury. Viral swab was negative for COVID versus influenza versus RSV as a cause for her generalized weakness as well. As patient reported past history of UTI causing similar symptoms a urine sample was obtained but showed no overt signs of infection. Secondary to this I do not feel there is need for antibiotics but I will send the urine for culture based on her past history. Therefore at this time patient's had resolution of symptoms she is low risk for cardiovascular disease her troponins are normal her EKG is sinus there is been no cardiac dysrhythmia. She also denies any pleuritic chest pain and does not have history of recent travel surgery or hormone use or family history of DVT/PE and I do not feel need for D-dimer or CTA of the chest. History & Record Review Discussion w/independent historian: Patient Lab Data Attestation: I reviewed the patient's lab results. Labs: Laboratory Results - last 24 hr 06/25/24 06/25/24 06/26/24 22:06 22:40 00:05 WBC 9.7 RBC 4.32 Hgb 13.6 Hct 41.0 MCV 94.9 MCH 31.5 MCHC 33.2 RDW Std Deviation 44.5 H RDW Coeff of [place] 12.9 Plt Count 303 MPV 10.4 Immature Gran % (Auto) 0.300 Neut % (Auto) 74.8 H Lymph % (Auto) 20.2 [place] % (Auto) 3.6 Eos % (Auto) 0.8 Baso % (Auto) 0.3 Absolute Neuts (auto) 7.2 Absolute Lymphs (auto) 1.96 Nucleated RBC % 0 Sodium 140 Potassium 3.5 Chloride 104 Carbon Dioxide 28.0 Anion Gap 7 BUN 26 H Creatinine 0.88 Estim Creat Clear Calc 58.69 Est GFR (MDRD) Af Amer 85 Est GFR (MDRD) Non-Af 71 BUN/Creatinine Ratio 29.7 H Glucose 108 H Calcium 9.2 Magnesium 2.2 Total Bilirubin 0.60 Direct Bilirubin 0.17 AST 33 ALT 32 Alkaline Phosphatase 120 H Troponin I High Sens 7 7 Total Protein 7.1 Albumin 3.8 Globulin 3.3 Lipase 64 Urine Color Yellow Urine Clarity Clear Urine pH 6.0 Ur Specific [place] 1.030 Urine Protein 30 H Urine Glucose (UA) Normal Urine Ketones Negative Urine Occult Blood 25 H Urine Nitrite Negative Urine Bilirubin Negative Urine Urobilinogen Normal Ur Leukocyte Esterase 100 H Urine RBC 0 SEEN Urine WBC 0 SEEN Ur Squamous Epith Cells 0 SEEN Urine Bacteria RARE Urine Mucus 0 SEEN Radiography Diagnostic Testing: Clinical Impression(s) from Imaging Studies Chest X-Ray 06/25/24 22:30 IMPRESSION: No evidence of active intrathoracic disease. Electronically Signed: Rosa Rocha MD at 0:39 EST , Chest x-ray as interpreted by the emergency medicine physician reveals no acute infiltrate pneumothorax pleural effusion or widening of the mediastinum Discharge Plan Triage Chief Complaint: Chest Pain ED Provider: Aaron Rodriguez Dx/Rx/DC Orders Clinical Impression: Nonspecific chest pain, Hypothyroidism Instructions: ED Chest Pain, Uncertain Cause Prescriptions: No Action aspirin 81 mg tablet,delayed release (DR/EC) 81 mg PO BID magnesium 30 mg tablet 30 mg PO DAILY biotin 1 mg capsule 1 mg PO DAILY ascorbate calcium (vitamin C) 500 mg tablet 500 mg PO DAILY estradiol 0.01 % (0.1 mg/gram) cream See Rx Instructions VAGINAL .COMPLEX Qty: 42.5 2RF Rx Instructions: small amount as directed vaginal twice a week; multivitamin 1 EACH tablet 1 tab PO DAILY cholecalciferol (vitamin D3) 2,000 UNIT capsule 2,000 unit PO DAILY levothyroxine 125 mcg tablet 125 mcg PO DAILY Primary Care Provider: David Parker Referrals: David Parker MD [Primary Care Provider] - Activity Restrictions/Additional Instructions: Your workup today showed no signs of active heart disease. Your history and exam is most consistent with a viral illness. Keep yourself well-hydrated and return to the ER if she have any further concerns or worsening of symptoms Print Language: Kinyarwanda Disposition Disposition: Home, Self Care Discharge Date/Time: 06/26/24 01:15
[2024-06-26 01:14] VITALS: BP 109/88; PULSE 89; RESP 17; TEMP 36.7; O2SAT 100
== END 2024-06-26 01:15 | disposition home or self-care (01) ==
PROVIDERS: Emergency Provider Emergency Medicine; PCP Family Medicine; Visit Provider Emergency Medicine
DX: R07.9 Chest pain, unspecified (principal); E03.9 Hypothyroidism, unspecified; Z79.82 Long term (current) use of aspirin; Z79.899 Other long term (current) drug therapy
CPT/HCPCS: 71046; 80048; 80076; 81001; 83690; 83735; 84484; 85025; 87631; 93005; 99283; A4216

== ENCOUNTER → 2024-10-17 | Outpatient (CLI) | payer OTHER, SELFPAY ==
[2024-10-17 18:05] LABS: Absolute Lymphocyte Count 1.86 X10^3/uL (0.83-4.51); Absolute Neutrophil Count 3.5 X10^3/uL (2.0-7.7); Basophil# 0.03 X10^3/uL; Basophil% 0.5 % (0-1); Eosinophil# 0.09 X10^3/uL; Eosinophils% 1.5 % (0-5); Hematocrit 38.1 % (37-47); Hemoglobin 12.4 g/dL (12.0-15.0); Lymphocyte # 1.86 X10^3/ul (0.83-4.51); Lymphocyte % 31.2 % (19-41); Mean Corp Hgb Conc 32.5 g/dL (32-36); Mean Corpuscular Volume 95.3 fL (81-99); Mean Platelet Vol. 10.5 fl (6.2-12.0); Monocyte# 0.49 X10^3/uL; Monocyte% 8.2 % (0-10); NRBC Flagged by Analyzer 0 % (0-5); Neutrophil # 3.48 X10^3/uL (2.7-7.7); Neutrophil % 58.3 % (47-70); Platelet Count 258 K/mm3 (150-450); RBC Distribution Width CV 12.1 % (11.6-14.6); RBC Distribution Width SD 42.2 fl (35.1-43.9)
[2024-10-17 19:08] LABS: ALB/GLOB Ratio 1.7 RATIO (0.9-2.4); AST(SGOT) 31 U/L (<=31); Alanine Aminotransfer ALT/SGPT 20 U/L (<=34); Albumin, Serum 4.2 g/dL (3.5-5.0); Alkaline Phosphatase 113 U/L (35-104); Anion Gap 11 (5-15); BUN 21 mg/dL (4-19); BUN/Creat Ratio 24.1 RATIO (10-20); Calcium,Total 9.2 mg/dL (7.6-11.0); Carbon Dioxide 24.7 mmol/L (21.0-32.0); Chloride 104 mmol/L (98-108); Creatinine, Serum 0.87 mg/dL (0.70-1.20); EST Glomerular Filtration Rate 77 (>60); Globulin 2.5 g/dL (2.2-4.2); Glucose 95 mg/dL (70-99); Potassium 4.1 mmol/L (3.3-5.1); Protein, Total 6.7 g/dL (5.9-8.4); Sodium Level 140 mmol/L (133-145); Vitamin B12 1290 pg/mL (180-914)
== END | disposition home or self-care (01) ==
LOC: MFPLAB 16:13
PROVIDERS: PCP Family Medicine; Referring Provider Family Medicine; Visit Provider Family Medicine
DX: E03.9 Hypothyroidism, unspecified (principal); R53.83 Other fatigue
CPT/HCPCS: 36415; 80053; 82607; 82746; 84439; 84443; 85025